=== PATIENT | male | born 1975 | race Caucasian/White ===

== ENCOUNTER 2016-12-10 14:18 | Emergency (ER) | payer OTHER ==
[~2016-12-10] VITALS: Ht 198.1 cm; Wt 131.8 kg
[2016-12-10 14:22] VITALS: BP 156/98; PULSE 79; RESP 14; O2SAT 98
--- NOTE | 2016-12-10 14:44 | ED.REPORT ---
HPI-Headache Date of Service Dec 10, 2016 ED Provider: Dr. Moore 41 y/o male with a hx of headaches (none since sinus surgery a year ago) presents to the ED complaining of severe headache, onset last night. The pt states he woke up last night with a mild headache and went back to sleep. However when he woke up the second time, the headache had significantly worsened. The pain seems to be diffuse on top of the head with more pressure behind his right eye. Associated sx include slight change in balance, tingling feeling in the right arm and blurry vision. The pt states "it feels like I got something in my eye". He denies lower extremity pain, abdominal pain, vomiting and change in pain with neck movement. His current headache, though gradually improving, is significantly worse than the headaches he used to have prior to his surgery. Nursing Notes Stated Complaint: HEADACHE/LOSS OF BALANCE Chief Complaint: Headache Nursing Notes Reviewed: Yes Allergies: Coded Allergies: No Known Allergies (Unverified , 12/10/16) General Time Seen by MD: 14:44 Chief Complaint Headache Hx Obtained From: Patient Arrived By: Walk-in Sudden in Onset?: Yes Onset Occurred: 9 - 12 hours ago Symptom Duration: Since onset Location: : Generalized Quality: Painful Radiation: : Does not radiate Severity: Current: Moderate Severity: Maximum: Severe Recent Healthcare: No recent doctor visit Similar Sx Previous: No Past Medical History Past Medical History headaches (improved since sinus surgery) Past Surgical History sinus surgery Smoking History Heavy Tobacco Smoker Social History Alcohol Use: "Social" (rarely) Ambulatory Status Independent Review of Systems Reports: slight difficulty balancing Reports: tingling feeling in the right arm GI: Denies: Abdominal pain, Vomiting Musculoskeletal: Denies: Extremity pain Neurologic: Reports: Headache, Vision change (blurry vision) Complete sys rev & neg: except as marked. Physical Exam Initial Vital Signs Vital Signs (First) Date Time Temp Pulse Resp B/P Pulse Ox O2 Delivery O2 Flow Rate FiO2 12/10/16 14:22 36.4 79 14 156/98 98 Room Air Initial VS: Reviewed Respiratory: Breath sounds normal, Clear to auscultation, No respiratory distress Cardiovascular: Regular rate & rhythm, Heart sounds normal, Intact distal pulses Extremities: Vascular intact, Neuro intact, No swelling, No tenderness Skin: Warm, Dry, No cyanosis General/Constitutional: Awake, Alert, No acute distress, Cooperative Head / Eyes: Atraumatic, Normocephalic, PERRL, EOMI Neck: Atraumatic, Supple, Full range of motion Neurologic: Oriented X3, Speech NL, No motor deficits, No sensory deficits, CN II - XII intact Back: Atraumatic, Full range of motion Interpretation & Diagnostics PROCEDURE: X-RAY LUMBAR PUNCTURE ([id number]) IMPRESSION: Successful fluoroscopically guided lumbar puncture. Dictated by: Chantal Hawk MD, PhD on 12/10/2016 at 16:57 Approved by: Chantal Hawk MD, PhD on 12/10/2016 at 16:58 PROCEDURE: MRI BRAIN WITHOUT CONTRAST ([id number]) IMPRESSION: 1. Limited brain MRI, related to motion artifact. 2. No acute intracranial hemorrhage or ischemia. 3. Minimal white matter changes are likely age-related. 4. Moderate maxillary sinus disease is likely chronic. Dictated by: Isaías Alexandra M.D. on 12/10/2016 at 16:18 Approved by: Isaías Alexandra M.D. on 12/10/2016 at 16:21 Lab Results Interpretation Result Diagram: 12/10/16 1540 12/10/16 1540 Test 12/10/16 15:40 12/10/16 16:58 White Blood Count 8.6th/mm3 (3.8-10.1) Red Blood Count 5.07mil/mm3 (4.40-5.80) Hemoglobin 14.7g/dL (13.8-17.2) Hematocrit 42.9% (41.0-50.0) Mean Corpuscular Volume 84.6fL (81-100) Mean Corpuscular Hemoglobin 29.0pg (27.0-35.0) Mean Corpuscular Hemoglobin Concent 34.3% (32.0-37.0) Red Cell Distribution Width 12.6% (12.3-15.4) Platelet Count 202bil/L (150-400) Neutrophils (%) (Auto) 50.0% (40-74) Lymphocytes (%) (Auto) 36.2% (14-46) Monocytes (%) (Auto) 10.0% (4-12) Eosinophils (%) (Auto) 3.4% (0-5) Basophils (%) (Auto) 0.3% (0-3) Prothrombin Time 10.4sec (8.1-12.5) Prothromb Time International Ratio 0.97ratio Sodium Level 140mEq/L (134-144) Potassium Level 4.6mEq/L (3.5-5.2) Chloride Level 104mEq/L (97-108) Carbon Dioxide Level 23mmol/L (18-29) Blood Urea Nitrogen 22mg/dL (6-24) Creatinine 0.98mg/dL (0.76-1.27) Estimat Glomerular Filtration Rate 89mL/min (>59) Glucose Level 102mg/dL (60-99) Calcium Level 9.4mg/dL (8.5-10.1) Hold Baird Top Tube Received (Received) CSF Appearance Clear (CLEAR) CSF Color Colorless (COLORLESS) CSF WBC 0/mm3 (0-5) CSF RBC 50/mm3 CSF Mononuclear WBCs % CSF Polynuclear WBCs % CSF Other Cells CT Head Interpretation IMPRESSION: No acute intracranial disease process. Dictated by: Chantal Hawk MD, PhD on 12/10/2016 at 15:02 Approved by: Chantal Hawk MD, PhD on 12/10/2016 at 15:03 Study: Head CT no contrast Interpretation / Wet Read by: Interpret - Radiologist Re-Eval/Medical Decision Re-Evaluation/Progress : Time of Eval: 17:37 Re-Evaluation/Progress Note: Rechecked pt. Discussed lab results, imaging results, diagnosis and plan to transfer to [facility]. Pt understands and agrees with the plan. All questions addressed. Consultation : Note: Spoke with Dr. Roberts at [facility] from neurosurgery who accepts the transfer. Counseled Regarding: Diagnosis, Lab results, Need for admission Discharge & Departure Shift Change Sign-Out Patient Care Transferred: Yes Discussed Complaint(s): Yes Laboratory Evaluation: Back, reviewed by me Imaging Studies: Done, reviewed by me Procedures: Results discussed Impression: Primary Impression: Subarachnoid hemorrhage Disposition: Transfer, Acute Care Facility Receiving Hospital: [facility] Discharge Condition All VS Reviewed: Yes Referrals: NOPCP (PCP) Scribe Attestation Portions of this note were transcribed by Joyce Abdalla. I, , personally performed the history, physical exam and medical decision- making;I reviewed and confirmed the accuracy of the information in the transcribed note. Signed by Dorian Lambert. 12/10/16 17:56 Fidel Moore MD Dec 10, 2016 14:44 Joyce Abdalla Dec 10, 2016 15:14
--- NOTE | 2016-12-10 15:05 | DRSVH ---
PROCEDURE: CT BRAIN WITHOUT CONTRAST ([id number]) INDICATIONS: HEADACHE TECHNIQUE: Noncontrast 4.5 mm thick angled axial sections acquired from the foramen magnum to the vertex, with c oronal reformats. COMPARISON: None. FINDINGS: Image quality: Excellent. CSF spaces: Basal cisterns are patent. No extra-axial fluid collections. Ventricles are normal in size and shape. Brain: No midline shift. No intracranial masses or hemorrhage. Trivedi-white matter interface is norm al. Skull and face: Calvarium and visualized facial bones are intact, without suspicious lesions. Sinuses: Visualized sinuses and mastoids are clear. IMPRESSION: No acute intracranial disease process. Dictated by: Chantal Hawk MD, PhD on 12/10/2016 at 15:02 Approved by: Chantal Hawk MD, PhD on 12/10/2016 at 15:03
[2016-12-10 15:07] VITALS: BP 145/90; PULSE 72; RESP 20; O2SAT 100
[2016-12-10] MEDS ORDERED: 0.9% Sodium Chloride 1,000 ML IV ONE (15:14)
[2016-12-10] MEDS ORDERED: MetoCLOpramide 5 mg/mL 2 mL Inj IVPUSH ONE (15:15)
[2016-12-10] MEDS ORDERED: Ondansetron 2 mg/mL 2 mL Inj IVPUSH ONE (15:15)
[2016-12-10 15:59] LABS: BASOPHILS % (AUTO) 0.3 % (0-3); EOSINOPHILS % (AUTO) 3.4 % (0-5); Mean Corpuscular Volume 84.6 fL (81-100); Platelet Count 202 bil/L (150-400)
[2016-12-10 16:14] LABS: INR 0.97 ratio
--- NOTE | 2016-12-10 16:22 | DRSVH ---
PROCEDURE: MRI BRAIN WITHOUT CONTRAST ([id number]) INDICATIONS: right arm numb, right vision affected TECHNIQUE: Noncontrast axial T1 spin echo, axial T2 fast spin echo, sagittal and axial FLAIR, coronal T2 fast sp in echo, axial gradient echo, axial diffusion and ADC through the brain. COMPARISON: [facility], CT, CT BRAIN WO CON, 12/10/2016, 14:46. FINDINGS: Image quality: Suboptimal related to extensive motion artifact. Brain: There is no acute intra-axial or extra-axial hemorrhage. No extra-axial fluid collection is i dentified. There is no midline shift or mass effect. The orbits are grossly unremarkable. No focal parenchymal masses are identified. There is no parenchymal edema. A few very small areas o f increased flair signal within the deep white matter of the right frontal/parietal lobe is noted. N o restricted diffusion is present. The midline intracranial structures are within normal limits. Th e major expected intracranial flow voids are not adequately seen, but grossly unremarkable without la rge aneurysm or occlusion. The ventricles and cortical sulci are age-appropriate. Bones: The imaged osseous structures are grossly intact. No suspicious osseous lesions are identifie d. Moderate mucosal thickening is noted involving the left maxillary sinus. There is mild mucosal t hickening of the right maxillary sinus. Otherwise, the imaged paranasal sinuses and master air cells are clear. Extracranial soft tissues: The imaged overlying soft tissues of the face and head are grossly unremar kable. IMPRESSION: 1. Limited brain MRI, related to motion artifact. 2. No acute intracranial hemorrhage or ischemia. 3. Minimal white matter changes are likely age-related. 4. Moderate maxillary sinus disease is likely chronic. Dictated by: Isaías Alexandra M.D. on 12/10/2016 at 16:18 Approved by: Isaías Alexandra M.D. on 12/10/2016 at 16:21
--- NOTE | 2016-12-10 16:59 | DRSVH ---
PROCEDURE: X-RAY LUMBAR PUNCTURE ([id number]) INDICATIONS: severe TAYLOR, labs pending TECHNIQUE: The indications, alternatives, benefits, risks, and complications were explained to the patient. Sherif fontana informed consent was obtained and placed in the chart. The patient was placed in a prone positi on on the fluoroscopy table, and a level was chosen for percutaneous access under fluoroscopic guidan ce. The site was prepped and draped in a sterile fashion. After local anaesthetic, a spinal needle was then used to enter the intrathecal space, with return of cerebrospinal fluid. After obtaining sufficient fluid, the needle was then withdrawn, and a bandage applied to the punctur e site. FINDINGS: Puncture level: L2-L3 Needle: Blunt-tipped spinal needle. Opening pressure: 10 cm CSF volume and description: 5 cc of clear CSF Medications: 1% lidocaine for anaesthesia. Complications: None Laboratories: As ordered by referring clinician. IMPRESSION: Successful fluoroscopically guided lumbar puncture. Dictated by: Chantal Hawk MD, PhD on 12/10/2016 at 16:57 Approved by: Chantal Hawk MD, PhD on 12/10/2016 at 16:58
[2016-12-10 17:12] VITALS: BP 135/72; PULSE 70; RESP 20; O2SAT 98
[2016-12-10 17:17] LABS: APPEARANCE,CSF CLEAR (CLEAR); COLOR,CSF COLORLESS (COLORLESS); WHITE BLOOD CELL,CSF 0 /mm3 (0-5)
[2016-12-10 17:18] LABS: APPEARANCE,CSF CLEAR (CLEAR); COLOR,CSF COLORLESS (COLORLESS); WHITE BLOOD CELL,CSF 0 /mm3 (0-5)
[2016-12-10 17:53] VITALS: BP 141/89; PULSE 85; RESP 20; O2SAT 98
[2016-12-10 19:26] VITALS: BP 130/78; PULSE 83; RESP 20; O2SAT 98
== END 2016-12-10 19:28 | disposition short-term general hospital (02) ==
LOC: SED 14:18
DX: I60.9 Nontraumatic subarachnoid hemorrhage, unspecified (principal); R20.2 Paresthesia of skin; H53.8 Other visual disturbances; F17.200 Nicotine dependence, unspecified, uncomplicated
CPT/HCPCS: 36415; 62270; 70450; 70551; 77003; 80048; 85025; 85610; 87496; 87498; 87529; 87532; 87653; 87798; 89051; 96361; 96374; 96375; 99285; J2405; J2765; J7030